=== PATIENT | female | born 1990 | race Caucasian/White ===

== ENCOUNTER 2016-05-03 13:26 | Emergency (ER) | payer OTHER ==
[~2016-05-03] VITALS: Ht 154.9 cm; Wt 53.0 kg
[2016-05-03 13:27] VITALS: BP 130/70; PULSE 58; RESP 15; TEMP 97.9; O2SAT 97
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
[2016-05-03] MEDS ORDERED: CYCL5TAB PO (16:22)
[2016-05-03] MEDS ORDERED: EXTR500C PO (16:22)
[2016-05-03] MEDS ORDERED: IBUP-232 PO (16:22)
== END 2016-05-03 16:49 | disposition home or self-care (01) ==
LOC: NEPB 13:26
DX: S16.1XXA Strain of muscle, fascia and tendon at neck level, initial encounter (principal); V49.49XA Driver injured in collision with other motor vehicles in traffic accident, initial encounter; Y93.89 Activity, other specified; Y92.410 Unspecified street and highway as the place of occurrence of the external cause
CPT/HCPCS: 72125; 99284; L0150

== ENCOUNTER 2016-10-18 15:48 | Emergency (ER) | payer OTHER ==
[~2016-10-18] VITALS: Ht 152.4 cm; Wt 53.4 kg
[~2016-10-18 15:48] MED LIST: CYCL5TAB PO; EXTR500C PO; IBUP-232 PO
[2016-10-18 15:54] VITALS: BP 119/77; PULSE 81; RESP 16; TEMP 99.1; O2SAT 99
--- NOTE | 2016-10-18 16:09 | PD ---
HPI Chief Complaint: Abdominal Pain Time Seen by Provider: 15:58 Travel History International Travel<30 days: No Contact w/Intl Traveler<30days: No Traveled to known affect area: No History of Present Illness HPI 26-year-old female here for evaluation of abdominal pain, nausea, and decreased appetite. Symptoms have been going on for last 5 days, worse today. Pain was initially periumbilical, has not migrated to her right lower quadrant. She has had some chills, but has not noticed any fevers. No vaginal bleeding or discharge. She is in a monogamous relationship with her . No urinary symptoms. No history of abdominal surgeries. She did have a couple episodes of vomiting over the last 5 days and one episode of diarrhea. Pain described as a bloating sensation, moderate, constant, worse with movement and palpation. PFSH Past Medical History LMP: 10/04/16 Social History Alcohol Use: Yes Tobacco Use: No Substance Use: No Allergies-Medications (Allergen,Severity, Reaction): Coded Allergies: No Known Allergies (Unverified , 10/18/16) Reported Meds & Prescriptions Reported Meds & Active Scripts Active Flexeril (Cyclobenzaprine HCl) 5 Mg Tab 5 Mg PO TID Ibuprofen 600 Mg Tab 600 Mg PO Q6H PRN Acetaminophen Extra Strength (Acetaminophen) 500 Mg Cap 1,000 Mg PO Q6H PRN Review of Systems Except as stated in HPI: all other systems reviewed are Neg Physical Exam Narrative GENERAL: Well-developed, well-nourished, comfortable, no apparent distress. SKIN: Focused skin assessment warm/dry. No rash. HEAD: Atraumatic. Normocephalic. EYES: Pupils equal and round. No scleral icterus. No injection or drainage. ENT: Mucous membranes pink and moist. NECK: Trachea midline. No JVD. CARDIOVASCULAR: Regular rate and rhythm. No murmur appreciated. RESPIRATORY: No accessory muscle use. Clear to auscultation. Breath sounds equal bilaterally. GASTROINTESTINAL: Abdomen soft, nondistended. Mild right lower quadrant tenderness without peritoneal signs. Mild. Umbilical tenderness. Negative Rovsing sign. Rest of abdomen is soft and nontender. Normal bowel sounds. MUSCULOSKELETAL: No obvious deformities. No clubbing. No cyanosis. No edema. NEUROLOGICAL: Awake and alert. No obvious cranial nerve deficits. Motor grossly within normal limits. Normal speech. PSYCHIATRIC: Appropriate mood and affect; insight and judgment normal. Data Data Last Documented VS Vital Signs Date Time Temp Pulse Resp B/P Pulse Ox O2 Delivery O2 Flow Rate FiO2 10/18/16 17:50 95 18 113/70 99 Room Air 10/18/16 15:54 99.1 Orders Complete Blood Count With Diff (10/18/16 16:06) Comprehensive Metabolic Panel (10/18/16 16:06) Lipase (10/18/16 16:06) Prothrombin Time / Inr (Pt) (10/18/16 16:06) Act Partial Throm Time (Ptt) (10/18/16 16:06) Urinalysis - C+S If Indicated (10/18/16 16:06) Ct Abd/Pel W Iv Contrast(Rout) (10/18/16 16:06) Iv Access Insert/Monitor (10/18/16 16:06) Ecg Monitoring (10/18/16 16:06) Oximetry (10/18/16 16:06) Ondansetron Inj (Zofran Inj) (10/18/16 16:15) Sodium Chloride 0.9% Flush (Ns Flush) (10/18/16 16:15) Ed Urine Pregnancytest Poc (10/18/16 16:06) Oral Contrast - Adult (10/18/16 16:11) Diatrizoate Liq ( Gastroview Liq) (10/18/16 16:19) Urine Culture (10/18/16 16:10) Iohexol 350 Inj (Omnipaque 350 Inj) (10/18/16 17:45) Labs Laboratory Tests Test 10/18/16 16:10 White Blood Count 10.1 TH/MM3 Red Blood Count 4.54 MIL/MM3 Hemoglobin 13.8 GM/DL Hematocrit 40.4 % Mean Corpuscular Volume 89.0 FL Mean Corpuscular Hemoglobin 30.4 PG Mean Corpuscular Hemoglobin 34.1 % Concent Red Cell Distribution Width 11.8 % Platelet Count 284 TH/MM3 Mean Platelet Volume 8.3 FL Neutrophils (%) (Auto) 79.5 % Lymphocytes (%) (Auto) 14.9 % Monocytes (%) (Auto) 4.5 % Eosinophils (%) (Auto) 0.2 % Basophils (%) (Auto) 0.9 % Neutrophils # (Auto) 8.0 TH/MM3 Lymphocytes # (Auto) 1.5 TH/MM3 Monocytes # (Auto) 0.5 TH/MM3 Eosinophils # (Auto) 0.0 TH/MM3 Basophils # (Auto) 0.1 TH/MM3 CBC Comment DIFF FINAL Differential Comment Prothrombin Time 11.4 SEC Prothromb Time International 1.0 RATIO Ratio Activated Partial 26.4 SEC Thromboplast Time Urine Collection Type CLEAN CATCH Urine Color STRAW Urine Turbidity CLEAR Urine pH 6.0 Urine Specific [place] 1.003 Urine Protein NEG mg/dL Urine Glucose (UA) NEG mg/dL Urine Ketones NEG mg/dL Urine Occult Blood NEG Urine Nitrite NEG Urine Bilirubin NEG Urine Leukocyte Esterase NEG Urine Squamous Epithelial 0-5 /hpf Cells Urine Amorphous Sediment FEW Urine Bacteria MOD /hpf Microscopic Urinalysis Comment CULTURE INDICATED Urine Collection Time 1610 Sodium Level 140 MEQ/L Potassium Level 3.5 MEQ/L Chloride Level 104 MEQ/L Carbon Dioxide Level 28.5 MEQ/L Anion Gap 8 MEQ/L Blood Urea Nitrogen 13 MG/DL Creatinine 0.75 MG/DL Estimat Glomerular Filtration 93 ML/MIN Rate Random Glucose 112 MG/DL Calcium Level 9.2 MG/DL Total Bilirubin 1.0 MG/DL Aspartate Amino Transf 25 U/L (AST/SGOT) Alanine Aminotransferase 32 U/L (ALT/SGPT) Alkaline Phosphatase 42 U/L Total Protein 7.7 GM/DL Albumin 4.3 GM/DL Lipase 124 U/L [facility] Medical Decision Making Medical Screen Exam Complete: Yes Emergency Medical Condition: Yes Differential Diagnosis Appendicitis, colitis, ovarian cyst, ovarian torsion unlikely, PID unlikely, TOA unlikely, , ectopic , IBS Narrative Course Patient reports that she had a pelvic exam performed earlier today, however does not know the results. She prefers to follow up with those results as opposed to having another pelvic exam performed here in the emergency department. Vital signs show heart rate 81, blood pressure 119/77, pulse ox 99% on room air , oral temp of 99.1F. CBC shows WBC 10.1, hemoglobin 13.8, hematocrit 40.4, platelets 284, neutrophils 79.5%. CMP is unremarkable. Lipase is 124. Urine test is negative. UA shows moderate bacteria, otherwise within normal limits. CT abdomen pelvis: CONCLUSION: 1. Right ovarian cyst measures 1.9 cm. 2. No acute inflammatory process. 3. Normal appendix. Patient was made aware of all findings. She is resting comfortably. There are no peritoneal signs on her exam. Plan is to discharge her home with a prescription for Macrobid as well as Zofran. 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 Patient informed on when to return to the emergency department. She verbalizes understanding and agreement with plan. Diagnosis Primary Impression: Ovarian cyst Additional Impression: Bacteriuria Referrals: Primary Care Physician 3 days Additional Instructions: Follow-up with your primary care physician or your telecom field technician this week. Return to the emergency department for worsening symptoms or any other concerns. Scripts Ondansetron Odt (Zofran Odt)4 Mg Tab4 Mg SL Q6HR PRN (Nausea/Vomiting) #20 TAB Ref 0 Prov:Toro Gay MD 10/18/16 Nitrofurantoin Monohydrate Macrocrystals (Macrobid)100 Mg Wis680 Mg PO BID 5 Days Ref 0 Prov:Toro Gay MD 10/18/16 Disposition: 01 DISCHARGE HOME Condition: Stable Toro aGy MD Oct 18, 2016 16:09
[2016-10-18] MEDS ORDERED: ONDANSETRON HCL 4 MG/2 ML VIAL IVP ONE (16:15)
[2016-10-18] MEDS ORDERED: SODIUM CHLORIDE 0.9% FLUSH 10 ML FLUSH IV FLUSH PRN (16:15)
[2016-10-18] MEDS ORDERED: DIATRIZOATE MEGLUM/DIATRIZOATE SOD 9 ML CUP ONE (16:19)
[2016-10-18 16:24] LABS: BASOPHIL # 0.1 TH/MM3 (0-0.2); BASOPHIL % 0.9 % (0.0-2.0); EOSINOPHIL % 0.2 % (0.0-4.0); HEMATOCRIT 40.4 % (35.0-46.0); LYMPH % 14.9 % (9.0-44.0); LYMPHOCYTE # 1.5 TH/MM3 (1.0-4.8); MEAN CORPUSCULAR HEMOGLOBIN 30.4 PG (27.0-34.0); MEAN CORPUSCULAR HGB CONC 34.1 % (32.0-36.0); MONO % 4.5 % (0.0-8.0); NEUT % 79.5 % (16.0-70.0); PLATELET COUNT 284 TH/MM3 (150-450); RED BLOOD COUNT 4.54 MIL/MM3 (4.00-5.30); RED CELL DISTRIBUTION WIDTH 11.8 % (11.6-17.2); WHITE BLOOD COUNT 10.1 TH/MM3 (4.0-11.0)
[2016-10-18 16:25] VITALS: O2SAT 98
[2016-10-18 16:25] LABS: BLOOD, URINE NEG (NEG); GLUCOSE,URINE NEG (NEG); KETONE, URINE NEG (NEG); METHOD OF COLLECTION CLEAN CATCH; NITRITE,URINE NEG (NEG); URINE COLOR STRAW (YELLW/STRAW)
[2016-10-18 16:26] LABS: HEMO FLAGS DIFF FINAL
[2016-10-18 16:27] VITALS: BP 117/83; PULSE 90; RESP 18; O2SAT 98
[2016-10-18 16:32] LABS: BACTERIA, URINE MOD /hpf; COMMENT (UR) CULTURE INDICATED; CULTURE IF INDICATED CULTURE INDICATED; SQUAMOUS EPITHELIAL CELL URINE 0-5 /hpf (0-5)
[2016-10-18 16:35] LABS: CHLORIDE 104 MEQ/L (98-107); POTASSIUM 3.5 MEQ/L (3.5-5.1); SODIUM (NA) 140 MEQ/L (136-145)
[2016-10-18 16:39] LABS: ANION GAP 8 MEQ/L (5-15); BICARBONATE 28.5 MEQ/L (21.0-32.0); BLOOD UREA NITROGEN 13 MG/DL (7-18)
[2016-10-18 16:40] LABS: APTT (PATIENT) 26.4 SEC (24.3-30.1); PROTHROMBIN TIME - PATIENT 11.4 SEC (9.8-11.6)
[2016-10-18 16:41] LABS: ALT (GPT) 32 U/L (10-53); AST (GOT) 25 U/L (15-37)
[2016-10-18 16:42] LABS: GLOMERULAR FILTRATION RATE 93 ML/MIN (>89)
[2016-10-18 16:44] LABS: ALKALINE PHOSPHATASE 42 U/L (45-117)
[2016-10-18] MEDS ORDERED: IOHEXOL 350 MG/ML 10 ML VIAL (for RAD DIAG) IV ONE (17:45)
--- NOTE | 2016-10-18 17:47 | RADRPT ---
EXAM DATE/TIME: 10/18/2016 17:25 [facility] COMPARISON: No previous studies available for comparison. INDICATIONS : Right sided abdominal pain. IV CONTRAST: 100 cc Omnipaque 350 (iohexol) IV ORAL CONTRAST: Prescribed oral contrast ingested. RADIATION DOSE: 4.81 CTDIvol (mGy) MEDICAL HISTORY : Ovarian cysts. SURGICAL HISTORY : None. ENCOUNTER: Initial ACUITY: 3 days PAIN SCALE: 6/10 LOCATION: Right abdominal TECHNIQUE: Volumetric scanning of the abdomen and pelvis was performed. Using automated exposure control and ad justment of the mA and/or kV according to patient size, radiation dose was kept as low as reasonably achievable to obtain optimal diagnostic quality images. DICOM format image data is available electro nically for review and comparison. FINDINGS: LOWER LUNGS: The visualized lower lungs are clear. LIVER: Homogeneous density without lesion. There is no dilation of the biliary tree. No calcified gallston es. SPLEEN: Normal size without lesion. PANCREAS: Within normal limits. KIDNEYS: Normal in size and shape. There is no mass, stone or hydronephrosis. ADRENAL GLANDS: Within normal limits. VASCULAR: There is no aortic aneurysm. BOWEL/MESENTERY: The stomach, small bowel, and colon demonstrate no acute abnormality. There is no free intraperitone al air or fluid. The appendix is normal. ABDOMINAL WALL: Within normal limits. RETROPERITONEUM: There is no lymphadenopathy. BLADDER: No wall thickening or mass. REPRODUCTIVE: Right ovarian cyst measures 1.9 cm.. INGUINAL: There is no lymphadenopathy or hernia. MUSCULOSKELETAL: Within normal limits for patient age. CONCLUSION: 1. Right ovarian cyst measures 1.9 cm. 2. No acute inflammatory process. 3. Normal appendix. Octavio Christianson MD on October 18, 2016 at 17:43 Board Certified Radiologist. This report was verified electronically.
[2016-10-18 17:50] VITALS: BP 113/70; PULSE 95; RESP 18; O2SAT 99
[2016-10-18] MEDS ORDERED: ZOFR4TAB3 SL (17:55)
[2016-10-18] MEDS ORDERED: MACR100C2 PO (17:55)
[2016-10-18] MEDS ORDERED: KETOROLAC TROMETHAMINE 30 MG/ML (IVP) VIAL IV PUSH ONE (18:00)
== END 2016-10-18 18:48 | disposition home or self-care (01) ==
LOC: PHED 15:48
DX: N83.201 Unspecified ovarian cyst, right side (principal)
CPT/HCPCS: 74177; 80053; 81001; 83690; 84703; 85025; 85610; 85730; 87086; 96374; 96375; 99285; J1885; J2405; Q9963; Q9967

== ENCOUNTER 2017-02-27 13:20 | Emergency (ER) | payer OTHER ==
[~2017-02-27] VITALS: Ht 154.9 cm; Wt 53.9 kg
[~2017-02-27 13:20] MED LIST changes: +MACR100C2 PO; +ZOFR4TAB3 SL
[2017-02-27 13:34] VITALS: BP 121/68; PULSE 88; RESP 16; TEMP 98.5; O2SAT 100
[2017-02-27 14:48] VITALS: BP 115/68; PULSE 81; RESP 16; TEMP 98.4; O2SAT 98
[2017-02-27] MEDS ORDERED: SODIUM CHLORIDE 0.9% FLUSH 10 ML FLUSH IVF PRN (16:30)
[2017-02-27 16:35] VITALS: RESP 18; O2SAT 98
--- NOTE | 2017-02-27 16:35 | PD ---
HPI Chief Complaint: Cardiac Complaint Time Seen by Provider: 15:43 Travel History International Travel<30 days: No Contact w/Intl Traveler<30days: No Traveled to known affect area: No History of Present Illness HPI Patient is a 26-year-old female with a history of hyperthyroidism currently not being treated presents emergency Department with a two-week history of palpitations some tremors in her hands. Denies a history of anxiety and shortness of breath control use chest pain abdominal pain or loss swelling of her legs. No fevers no cough no congestion. States she's not had a checkup in over 2 years. States symptoms are constant, moderate in severity, context as above, no alleviating or exacerbating factors. PFSH Past Medical History Diminished Hearing: No Thyroid Disease: Yes (hyper) Tetanus Vaccination: < 5 Years Influenza Vaccination: No ?: Not LMP: 01/30/17 Ovarian Cysts: Yes Past Surgical History Surgical History: No Previous Surgery Social History Alcohol Use: Yes (couple times a week) Tobacco Use: No Substance Use: No Allergies-Medications (Allergen,Severity, Reaction): Coded Allergies: No Known Allergies (Unverified Adverse Reaction, Unknown, 02/27/17) Reported Meds & Prescriptions Reported Meds & Active Scripts Active No Active Prescriptions or Reported Medications Review of Systems Except as stated in HPI: all other systems reviewed are Neg Physical Exam Narrative GENERAL: Well-developed well-nourished in no obvious distress. SKIN: Focused skin assessment warm/dry. HEAD: Atraumatic. Normocephalic. EYES: Pupils equal and round. No scleral icterus. No injection or drainage. ENT: No nasal bleeding or discharge. Mucous membranes pink and moist. NECK: Trachea midline. No JVD. CARDIOVASCULAR: Regular rhythm with minimal tachycardia. No murmur appreciated. RESPIRATORY: No accessory muscle use. Clear to auscultation. Breath sounds equal bilaterally. GASTROINTESTINAL: Abdomen soft, non-tender, nondistended. Hepatic and splenic margins not palpable. MUSCULOSKELETAL: No obvious deformities. No clubbing. No cyanosis. No edema. NEUROLOGICAL: Awake and alert. No obvious cranial nerve deficits. Motor grossly within normal limits. Normal speech. PSYCHIATRIC: Appropriate mood and affect; insight and judgment normal. Data Data Last Documented VS Vital Signs Date Time Temp Pulse Resp B/P (MAP) Pulse Ox O2 Delivery O2 Flow Rate FiO2 02/27/17 18:28 87 16 129/76 (93) 99 02/27/17 17:36 Room Air 02/27/17 14:48 98.4 Orders Orders Electrocardiogram (02/27/17 13:45) Basic Metabolic Panel (Bmp) (02/27/17 16:18) Complete Blood Count With Diff (02/27/17 16:18) D-Dimer (02/27/17 16:18) Magnesium (Mg) (02/27/17 16:18) Prothrombin Time / Inr (Pt) (02/27/17 16:18) Act Partial Throm Time (Ptt) (02/27/17 16:18) Troponin I (02/27/17 16:18) Chest, Single Ap (02/27/17 16:18) Ecg Monitoring (02/27/17 16:18) Iv Access Insert/Monitor (02/27/17 16:18) Oximetry (02/27/17 16:18) Oxygen Administration (02/27/17 16:18) Sodium Chloride 0.9% Flush (Ns Flush) (02/27/17 16:30) Thyroid Stimulating Hormone (02/27/17 16:18) Free T3 (02/27/17 16:18) Free Thyroxine (T4) (02/27/17 16:18) Ed Discharge Order (02/27/17 17:53) Labs Laboratory Tests Test 02/27/17 16:35 White Blood Count 11.0 TH/MM3 Red Blood Count 4.67 MIL/MM3 Hemoglobin 14.0 GM/DL Hematocrit 41.8 % Mean Corpuscular Volume 89.4 FL Mean Corpuscular Hemoglobin 29.9 PG Mean Corpuscular Hemoglobin Concent 33.4 % Red Cell Distribution Width 11.8 % Platelet Count 264 TH/MM3 Mean Platelet Volume 8.1 FL Neutrophils (%) (Auto) 66.3 % Lymphocytes (%) (Auto) 26.2 % Monocytes (%) (Auto) 5.9 % Eosinophils (%) (Auto) 0.6 % Basophils (%) (Auto) 1.0 % Neutrophils # (Auto) 7.3 TH/MM3 Lymphocytes # (Auto) 2.9 TH/MM3 Monocytes # (Auto) 0.6 TH/MM3 Eosinophils # (Auto) 0.1 TH/MM3 Basophils # (Auto) 0.1 TH/MM3 CBC Comment DIFF FINAL Differential Comment Prothrombin Time 10.6 SEC Prothromb Time International Ratio 1.0 RATIO Activated Partial Thromboplast Time 25.7 SEC D-Dimer Quantitative (PE/DVT) 0.26 MG/L FEU Blood Urea Nitrogen 14 MG/DL Creatinine 0.68 MG/DL Random Glucose 86 MG/DL Calcium Level 9.3 MG/DL Magnesium Level 2.2 MG/DL Sodium Level 137 MEQ/L Potassium Level 3.7 MEQ/L Chloride Level 103 MEQ/L Carbon Dioxide Level 27.3 MEQ/L Anion Gap 7 MEQ/L Estimat Glomerular Filtration Rate 104 ML/MIN Troponin I LESS THAN 0.02 NG/ML Free Thyroxine 1.18 NG/DL Free Triiodothyronine (T3) pg/dL 2.83 PG/ML Thyroid Stimulating Hormone 3rd Gen 2.800 uIU/ML MDM Medical Decision Making Medical Screen Exam Complete: Yes Emergency Medical Condition: Yes Differential Diagnosis Hyperthyroidism, palpitations, PE seems unlikely. Narrative Course patient roomed emergency department, basic workup today is within normal limits , EKG completely normal, TSH normal, lecture lites normal. Patient has not had any ectopy on cardiac monitoring. She appears well. Inadequate stable. Unfortunately the exact cause of her symptoms have not been identified and she has been referred to primary care physician as well as her fiscal accounting clerk. She is stable for discharge this time. The patient was reassured discussed return to ED criteria. Diagnosis Primary Impression: Heart palpitations Referrals: Aubrey Soria MD [facility] Patient Instructions: General Instructions, Heart Palpitations (DC) Scripts No Active Prescriptions or Reported Meds Disposition: 01 DISCHARGE HOME Condition: Stable Govind Guillen MD Feb 27, 2017 16:35
[2017-02-27 16:44] LABS: AUTOMATED NEUTROPHIL # 7.3 TH/MM3 (1.8-7.7); BASOPHIL # 0.1 TH/MM3 (0-0.2); EOSINOPHIL # 0.1 TH/MM3 (0-0.4); EOSINOPHIL % 0.6 % (0.0-4.0); HEMATOCRIT 41.8 % (35.0-46.0); HEMO FLAGS DIFF FINAL; LYMPH % 26.2 % (9.0-44.0); LYMPHOCYTE # 2.9 TH/MM3 (1.0-4.8); MEAN CELL VOLUME 89.4 FL (80.0-100.0); MEAN CORPUSCULAR HEMOGLOBIN 29.9 PG (27.0-34.0); MEAN CORPUSCULAR HGB CONC 33.4 % (32.0-36.0); MONO % 5.9 % (0.0-8.0); NEUT % 66.3 % (16.0-70.0); PLATELET COUNT 264 TH/MM3 (150-450); RED BLOOD COUNT 4.67 MIL/MM3 (4.00-5.30); RED CELL DISTRIBUTION WIDTH 11.8 % (11.6-17.2)
[2017-02-27 16:56] LABS: CHLORIDE 103 MEQ/L (98-107); POTASSIUM 3.7 MEQ/L (3.5-5.1); SODIUM (NA) 137 MEQ/L (136-145)
[2017-02-27 16:59] LABS: ANION GAP 7 MEQ/L (5-15); BICARBONATE 27.3 MEQ/L (21.0-32.0); BLOOD UREA NITROGEN 14 MG/DL (7-18); MAGNESIUM 2.2 MG/DL (1.5-2.5)
[2017-02-27 17:03] LABS: GLOMERULAR FILTRATION RATE 104 ML/MIN (>89)
[2017-02-27 17:12] LABS: APTT (PATIENT) 25.7 SEC (24.3-30.1); PROTHROMBIN TIME - PATIENT 10.6 SEC (9.8-11.6)
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
[2017-02-27 18:09] LABS: FREE T3 2.83 PG/ML (2.18-3.98); FREE T4 1.18 NG/DL (0.76-1.46)
[2017-02-27 18:28] VITALS: BP 129/76
--- NOTE | 2017-03-01 23:28 | EKG ---
Date Performed: 02/27/2017 Time Performed: 13:45:58 PTAGE: 26 years EKG: Sinus rhythm INCOMPLETE RIGHT BUNDLE BRANCH BLOCK BORDERLINE ECG NO PREVIOUS TRACING DOCTOR: Markus Jarvis Interpretating Date/Time 03/01/2017 23:27:34
== END 2017-02-27 18:30 | disposition home or self-care (01) ==
LOC: PHED 13:20
DX: R00.2 Palpitations (principal); R25.1 Tremor, unspecified; R94.31 Abnormal electrocardiogram [ECG] [EKG]; E07.9 Disorder of thyroid, unspecified
CPT/HCPCS: 71010; 80048; 83735; 84439; 84443; 84481; 84484; 85025; 85379; 85610; 85730; 93005